=== PATIENT | male | born 1970 | race Caucasian/White ===

== ENCOUNTER 2018-03-16 22:14 | Emergency (ER) | payer MEDICAID ==
[~2018-03-16] VITALS: Ht 160 cm; Wt 61.8 kg
[~2018-03-16 22:14] MED LIST: AMOX-842 PO; LACT1.4C PO; METF-988 PO
[2018-03-16 22:23] VITALS: BP 147/90
--- NOTE | 2018-03-16 22:28 | NUR ---
TO LOBBY A/W BED, AMBULATORY, VSS ERMD NOTED
--- NOTE | 2018-03-16 22:55 | NUR ---
PT PRESENTS TO ED WITH EPIGASTRIC ABD PAIN WITH N/V AND 10/10 PAIN X4 HRS. PT STATES PAIN STARTED AFTER EATING SEVERAL TACOS FROM BURGERKING THAT WERE COLD. X4 QUADRANT BOWEL SOUNDS PRESENT. PT DENIES DIARREHA. POSITIONED IN BED FOR COMFORT. ER MD AWARE. CONTINUE TO MONITOR.
--- NOTE | 2018-03-16 22:55 | NUR ---
PT AMBULATED TO BED 5
[2018-03-16] MEDS ORDERED: DICYCLOMINE HCL LIQUID 20 MG, ALUMINUM HYD/MAG/SIMETHICONE 30 ML, LIDOCAINE VISCOUS 2% ... PO ONE ×3 (23:30)
[2018-03-17 00:35] VITALS: BP 133/74
--- NOTE | 2018-03-17 00:35 | NUR ---
Patient discharged with v/s stable. Written and verbal after care instructions given and explained. Patient alert, oriented and verbalized understanding of instructions. Ambulatory with steady gait. All questions addressed prior to discharge. ID band removed. Patient advised to follow up with PMD. Rx of Mylanta given. Patient educated on indication of medication including possible reaction and side effects. Opportunity to ask questions provided and answered.
== END 2018-03-17 00:35 | disposition home or self-care (01) ==
LOC: MED 22:14
DX: R10.10 Upper abdominal pain, unspecified (principal); R19.7 Diarrhea, unspecified; E11.9 Type 2 diabetes mellitus without complications; F17.200 Nicotine dependence, unspecified, uncomplicated; Z79.84 Long term (current) use of oral hypoglycemic drugs; Z79.899 Other long term (current) drug therapy
CPT/HCPCS: 81002; 99282

== ENCOUNTER 2023-12-15 00:01 | Emergency (ER) | payer MEDICAID ==
[~2023-12-15] VITALS: Ht 172.7 cm; Wt 82.6 kg
[~2023-12-15 00:01] MED LIST changes: +AMOX-1230 PO; -AMOX-842 PO; +METF-1243 PO; -METF-988 PO
[2023-12-15 00:15] VITALS: BP 143/89; PULSE 96; RESP 22; TEMP 98.5; O2SAT 96
[2023-12-15 00:53] LABS: BASOPHILS % (AUTO) 0.7 % (0.0-2.0); EOSINOPHILS # (AUTO) 0.1 K/uL (0-0.4); HEMATOCRIT 42.8 % (36-52); HEMOGLOBIN 14.7 g/dL (12.0-18.0); LYMPHOCYTES % (AUTO) 32.1 % (20.5-51.1); MEAN CORPUSCULAR HEMOGLOBIN 31 pg (27-31); MEAN CORPUSCULAR HGB CONC 34 g/dL (33-37); MEAN CORPUSCULAR VOLUME 89.6 fL (80-94); MONOCYTES # (AUTO) 0.5 K/uL (0.8-1.0); MONOCYTES % (AUTO) 7.9 % (1.7-9.3); NEUTROPHILS # (AUTO) 3.6 K/uL (1.8-7.7); NEUTROPHILS % (AUTO) 58.3 % (42.2-75.2); PLATELET COUNT (AUTO) 209 K/uL (140-450); RED BLOOD CELL COUNT(AUTO) 4.77 MIL/uL (4.20-6.10); RED CELL DISTRIBUTION WIDTH 13.7 % (11.6-13.7); WHITE BLOOD COUNT (AUTO) 6.2 K/uL (4.8-10.8)
[2023-12-15 01:06] LABS: INR 0.98 (0.8-1.2); PROTHROMBIN TIME 10.3 secs (10.8-13.4)
[2023-12-15 01:09] LABS: ANION GAP 16.7 (8-16); CALCIUM 9.1 mg/dL (8.5-10.1); CARBON DIOXIDE 24.7 mmol/L (21-32); CREATININE 0.9 mg/dL (0.6-1.3); POTASSIUM 3.4 mmol/L (3.5-5.1)
[2023-12-15] MEDS: ASPIRIN 325 MG TAB PO ONE (01:31)
[2023-12-15 02:19] VITALS: BP 131/78; PULSE 88; RESP 19; O2SAT 97
== END 2023-12-15 02:19 | disposition short-term general hospital (02) ==
LOC: MED 00:01
DX: I21.29 ST elevation (STEMI) myocardial infarction involving other sites (principal); E11.9 Type 2 diabetes mellitus without complications; Z79.899 Other long term (current) drug therapy; Z88.0 Allergy status to penicillin
CPT/HCPCS: 36415; 71045; 80048; 83880; 84484; 85025; 85610; 85730; 93005; 96374; 99291; J1644; Q0092